=== PATIENT | male | born 1945 | race African-American/Black ===

== ENCOUNTER 2018-06-09 12:11 | Emergency (ER) | payer BC ==
[2018-06-09] MEDS: SOD CHLORIDE 0.9% 1,000 ML IV (13:16)
[2018-06-09] MEDS: ONDANSETRON 4 MG INJ IV (13:18)
[2018-06-09] MEDS: morphine 4 MG/ML VIAL IV (13:18)
[2018-06-09 13:23] LABS: ADD MAN DIFF? NO
[2018-06-09 13:27] LABS: WHITE BLOOD COUNT 6.3 10^3/ul (4.8-10.8)
[2018-06-09 13:27] LABS: BASOPHILS % 0.3 % (0.0-2.0); HEMATOCRIT 29.7 % (42.0-52.0); HEMOGLOBIN 9.2 g/dl (14.0-18.0); LYMPHOCYTES # 0.9 10^3/ul (0.8-2.9); LYMPHOCYTES % 14.2 % (15.0-51.0); MEAN CORPUSCULAR HEMOGLOBIN 28.6 pg (29.0-33.0); MEAN CORPUSCULAR VOLUME 92.2 fl (82.0-101.0); MEAN PLATELET VOLUME 9.5 fl (7.4-10.4); MONOCYTE # 0.5 10^3/ul (0.3-0.9); MONOCYTES % 8.2 % (0.0-11.0); NEUTROPHIL # 4.8 10^3/ul (1.6-7.5); NEUTROPHILS % 75.6 % (39.0-77.0); PLATELET COUNT 400 10^3/UL (140-415); RED BLOOD COUNT 3.22 10^6/ul (4.70-6.10); RED CELL DISTRIBUTION WIDTH 13.1 % (11.5-14.5)
[2018-06-09 13:44] LABS: ALANINE AMINOTRANSFERASE 16 IU/L (13-69); ALBUMIN/GLOBULIN RATIO 1.14; ALKALINE PHOSPHATASE 477 IU/L (42-121); ANION GAP 12 (5-13); ASPARTATE AMINO TRANSFERASE 33 IU/L (15-46); BILIRUBIN,INDIRECT 0.4 mg/dl (0-1.1); BILIRUBIN,TOTAL 0.4 mg/dl (0.2-1.3); BLOOD UREA NITROGEN 42 mg/dl (7-20); CARBON DIOXIDE 29 mmol/L (21-31); CHLORIDE 96 mmol/L (97-110); CREATININE 1.75 mg/dl (0.61-1.24); GLUCOSE 112 mg/dl (70-220); LIPASE 46 U/L (23-300); POTASSIUM 4.2 mmol/L (3.5-5.1); SODIUM 137 mmol/L (135-144); TOTAL PROTEIN 7.5 g/dl (6.1-8.1)
== END 2018-06-09 15:58 | disposition home or self-care (01) ==
LOC: E/R 12:11
DX: E86.0 Dehydration (principal); R53.1 Weakness; E11.9 Type 2 diabetes mellitus without complications; I10 Essential (primary) hypertension; Z87.891 Personal history of nicotine dependence; Z85.46 Personal history of malignant neoplasm of prostate
CPT/HCPCS: 36415; 74176; 80053; 83690; 85025; 93005; 96374; 96375; 99285-25

== ENCOUNTER 2018-06-12 20:06 | Inpatient (IN) | payer BC, MEDICAID ==
[2018-06-12] MEDS: SOD CHLORIDE 0.9% 500 ML IV (20:48)
[2018-06-12 20:59] LABS: ADD MAN DIFF? NO
[2018-06-12 21:00] LABS: BASOPHILS % 0.2 % (0.0-2.0); EOSINOPHILS % 0.1 % (0.0-7.0); HEMATOCRIT 29.4 % (42.0-52.0); HEMOGLOBIN 9.3 g/dl (14.0-18.0); LYMPHOCYTES # 1.2 10^3/ul (0.8-2.9); LYMPHOCYTES % 14.7 % (15.0-51.0); MEAN CORPUSCULAR HEMOGLOBIN 28.8 pg (29.0-33.0); MEAN CORPUSCULAR HGB CONC 31.6 g/dl (32.0-37.0); MEAN PLATELET VOLUME 10.5 fl (7.4-10.4); MONOCYTE # 0.6 10^3/ul (0.3-0.9); MONOCYTES % 7.7 % (0.0-11.0); NEUTROPHIL # 6.3 10^3/ul (1.6-7.5); NEUTROPHILS % 76.2 % (39.0-77.0); PLATELET COUNT 498 10^3/UL (140-415); RED BLOOD COUNT 3.23 10^6/ul (4.70-6.10); RED CELL DISTRIBUTION WIDTH 13.2 % (11.5-14.5)
[2018-06-12 21:00] LABS: WHITE BLOOD COUNT 8.3 10^3/ul (4.8-10.8)
[2018-06-12] MEDS: ONDANSETRON 4 MG INJ IV (21:06)
[2018-06-12] MEDS: HYDROmorphONE 1 MG/ML SYG IV (21:06)
[2018-06-12] MEDS: SOD CHLORIDE 0.9% 1,000 ML IV (21:06)
[2018-06-12 21:17] LABS: ALANINE AMINOTRANSFERASE 13 IU/L (13-69); ALBUMIN/GLOBULIN RATIO 1.05; ALKALINE PHOSPHATASE 652 IU/L (42-121); ANION GAP 13 (5-13); ASPARTATE AMINO TRANSFERASE 43 IU/L (15-46); BILIRUBIN,INDIRECT 0.4 mg/dl (0-1.1); BILIRUBIN,TOTAL 0.4 mg/dl (0.2-1.3); BLOOD UREA NITROGEN 45 mg/dl (7-20); CALCIUM 10.1 mg/dl (8.4-10.2); CARBON DIOXIDE 30 mmol/L (21-31); CHLORIDE 99 mmol/L (97-110); CREATININE 1.53 mg/dl (0.61-1.24); GLUCOSE 143 mg/dl (70-220); SODIUM 142 mmol/L (135-144); TOTAL PROTEIN 7.8 g/dl (6.1-8.1)
[2018-06-12 21:20] LABS: ADD UMIC NO; UR ASCORBIC ACID NEGATIVE (NEGATIVE); UR BACTERIA FEW /HPF (NONE SEEN); UR BILIRUBIN (Dip) NEGATIVE (NEGATIVE); UR BLOOD (Dip) NEGATIVE (NEGATIVE); UR CLARITY SLIGHTLY CLOUDY (CLEAR); UR COLOR YELLOW (YELLOW); UR GLUCOSE (Dip) NEGATIVE (NEGATIVE); UR KETONES (Dip) TRACE mg/dL (NEGATIVE); UR LEUKOCYTE ESTERASE (Dip) NEGATIVE Leu/ul (NEGATIVE); UR MUCUS FEW /HPF (NONE SEEN); UR NITRITE (Dip) NEGATIVE (NEGATIVE); UR RBC 2 /HPF (0-5); UR SPECIFIC GRAVITY (Dip) 1.019 (1.003-1.030); UR TOTAL PROTEIN (Dip) NEGATIVE (NEGATIVE); UR UROBILINOGEN (Dip) 1+ mg/dL (NEGATIVE); UR WBC 3 /HPF (0-5)
[2018-06-13] MEDS ORDERED: ACETAMINOPHEN 325 MG TAB PO (00:30)
[2018-06-13] MEDS ORDERED: HYDROCODONE/APAP (5/325) TAB PO (00:30)
[2018-06-13] MEDS ORDERED: ALBUTEROL/IPRATROPIUM (NEB) 3 ML AMP HHN (00:30)
[2018-06-13] MEDS ORDERED: NACL 0.9% 3 ML SYG IV (00:30)
[2018-06-13] MEDS ORDERED: ONDANSETRON 4 MG INJ IV (00:30)
[2018-06-13] MEDS ORDERED: GLUCAGON 1 MG INJ IM (01:00)
[2018-06-13] MEDS ORDERED: GLUCOSE GEL 15 GRAM TUBE PO ×2 (01:00)
[2018-06-13] MEDS ORDERED: DEXTROSE 50% 50 ML SYRINGE IV ×2 (01:00)
[2018-06-13] MEDS ORDERED: GLUCOSE GEL 15 GRAM TUBE BUCCAL (01:00)
[2018-06-13] MEDS: ACCU-CHEK XX (02:00)
[2018-06-13 05:47] LABS: ADD MAN DIFF? NO
[2018-06-13 05:50] LABS: WHITE BLOOD COUNT 6.6 10^3/ul (4.8-10.8)
[2018-06-13 05:50] LABS: BASOPHILS % 0.2 % (0.0-2.0); EOSINOPHILS % 0.3 % (0.0-7.0); HEMATOCRIT 28.4 % (42.0-52.0); HEMOGLOBIN 8.5 g/dl (14.0-18.0); LYMPHOCYTES # 0.9 10^3/ul (0.8-2.9); LYMPHOCYTES % 13.7 % (15.0-51.0); MEAN CORPUSCULAR HEMOGLOBIN 28.5 pg (29.0-33.0); MEAN CORPUSCULAR HGB CONC 29.9 g/dl (32.0-37.0); MEAN CORPUSCULAR VOLUME 95.3 fl (82.0-101.0); MEAN PLATELET VOLUME 10.1 fl (7.4-10.4); MONOCYTE # 0.6 10^3/ul (0.3-0.9); MONOCYTES % 9.2 % (0.0-11.0); NEUTROPHILS % 75.4 % (39.0-77.0); PLATELET COUNT 403 10^3/UL (140-415); RED BLOOD COUNT 2.98 10^6/ul (4.70-6.10); RED CELL DISTRIBUTION WIDTH 13.5 % (11.5-14.5)
[2018-06-13 06:15] LABS: ALANINE AMINOTRANSFERASE 11 IU/L (13-69); ALBUMIN 3.6 g/dl (3.3-4.9); ALBUMIN/GLOBULIN RATIO 1.09; ALKALINE PHOSPHATASE 546 IU/L (42-121); ANION GAP 9 (5-13); ASPARTATE AMINO TRANSFERASE 36 IU/L (15-46); BILIRUBIN,INDIRECT 0.3 mg/dl (0-1.1); BILIRUBIN,TOTAL 0.3 mg/dl (0.2-1.3); BLOOD UREA NITROGEN 38 mg/dl (7-20); CALCIUM 9.5 mg/dl (8.4-10.2); CARBON DIOXIDE 28 mmol/L (21-31); CHLORIDE 106 mmol/L (97-110); CHOLESTEROL 232 mg/dl (100-200); GLUCOSE 127 mg/dl (70-220); HDL CHOLESTEROL 29 mg/dl (31-75); LDL CHOLESTEROL,CALCULATED 174 mg/dl; MAGNESIUM 2.2 mg/dl (1.7-2.5); PHOSPHORUS 3.7 mg/dl (2.5-4.9); SODIUM 143 mmol/L (135-144); TOTAL PROTEIN 6.9 g/dl (6.1-8.1); TRIGLYCERIDES 146 mg/dl (0-149)
[2018-06-13 07:15] LABS: HEMOGLOBIN A1C 5.7 % (0-5.9)
[2018-06-13] MEDS: INSULIN ASPART [NOVOLOG] 3 ML PEN SC ×4 (08:00→20:35)
[2018-06-13] MEDS: FAMOTIDINE 20 MG INJ IV ×2 (08:26→20:38)
[2018-06-13] MEDS: HEPARIN 5,000 UNIT/1 ML VIAL SC ×2 (08:30→20:37)
[2018-06-13] MEDS: BICALUTAMIDE 50 MG TAB PO (09:43)
[2018-06-13] MEDS: HYDROCODONE/APAP (5/325) TAB PO (11:33)
[2018-06-13] MEDS ORDERED: ATORVASTATIN 40 MG TAB PO (21:00)
[2018-06-14 07:27] LABS: ADD MAN DIFF? NO
[2018-06-14 07:32] LABS: BASOPHILS % 0.1 % (0.0-2.0); EOSINOPHILS % 0.3 % (0.0-7.0); HEMATOCRIT 28.7 % (42.0-52.0); HEMOGLOBIN 8.6 g/dl (14.0-18.0); MEAN CORPUSCULAR HEMOGLOBIN 27.9 pg (29.0-33.0); MEAN CORPUSCULAR VOLUME 93.2 fl (82.0-101.0); MEAN PLATELET VOLUME 10.3 fl (7.4-10.4); MONOCYTE # 0.6 10^3/ul (0.3-0.9); MONOCYTES % 8.4 % (0.0-11.0); NEUTROPHIL # 5.6 10^3/ul (1.6-7.5); NEUTROPHILS % 75.7 % (39.0-77.0); PLATELET COUNT 444 10^3/UL (140-415); RED BLOOD COUNT 3.08 10^6/ul (4.70-6.10); RED CELL DISTRIBUTION WIDTH 13.5 % (11.5-14.5)
[2018-06-14 07:32] LABS: WHITE BLOOD COUNT 7.4 10^3/ul (4.8-10.8)
[2018-06-14 07:50] LABS: ANION GAP 7 (5-13); BLOOD UREA NITROGEN 26 mg/dl (7-20); CALCIUM 9.6 mg/dl (8.4-10.2); CARBON DIOXIDE 33 mmol/L (21-31); CHLORIDE 104 mmol/L (97-110); CREATININE 1.05 mg/dl (0.61-1.24); GLUCOSE 129 mg/dl (70-220); MAGNESIUM 1.9 mg/dl (1.7-2.5); PHOSPHORUS 3.4 mg/dl (2.5-4.9); POTASSIUM 4.2 mmol/L (3.5-5.1); SODIUM 144 mmol/L (135-144)
[2018-06-14] MEDS: INSULIN ASPART [NOVOLOG] 3 ML PEN SC ×4 (08:00→21:00)
[2018-06-14] MEDS: HEPARIN 5,000 UNIT/1 ML VIAL SC ×2 (08:35→21:16)
[2018-06-14] MEDS: FAMOTIDINE 20 MG INJ IV (08:35)
[2018-06-14] MEDS: BICALUTAMIDE 50 MG TAB PO (08:37)
[2018-06-14] MEDS: oxyCODONE (CR) 10 MG TAB [oxyCONTIN] PO ×2 (09:29→21:15)
[2018-06-14] MEDS: LORAZEPAM 2 MG INJ IV (09:29)
[2018-06-14] MEDS: SOD CHLORIDE 0.9% 100 ML (12:06)
[2018-06-14] MEDS: IODIXANOL LOCM 100 ML BTL (12:07)
[2018-06-14] MEDS: FAMOTIDINE 20 MG TAB PO (21:15)
[2018-06-15 06:40] LABS: ADD MAN DIFF? NO
[2018-06-15 07:24] LABS: ANION GAP 10 (5-13); BLOOD UREA NITROGEN 23 mg/dl (7-20); CARBON DIOXIDE 26 mmol/L (21-31); CHLORIDE 108 mmol/L (97-110); CREATININE 0.95 mg/dl (0.61-1.24); GLUCOSE 102 mg/dl (70-220); POTASSIUM 4.3 mmol/L (3.5-5.1); SODIUM 144 mmol/L (135-144)
[2018-06-15] MEDS: INSULIN ASPART [NOVOLOG] 3 ML PEN SC ×4 (08:00→20:38)
[2018-06-15 08:06] LABS: WHITE BLOOD COUNT 7.6 10^3/ul (4.8-10.8)
[2018-06-15 08:06] LABS: BASOPHILS % 0.3 % (0.0-2.0); EOSINOPHILS % 0.1 % (0.0-7.0); HEMATOCRIT 27.3 % (42.0-52.0); HEMOGLOBIN 8.4 g/dl (14.0-18.0); LYMPHOCYTES % 13.1 % (15.0-51.0); MEAN CORPUSCULAR HEMOGLOBIN 28.5 pg (29.0-33.0); MEAN CORPUSCULAR HGB CONC 30.8 g/dl (32.0-37.0); MEAN CORPUSCULAR VOLUME 92.5 fl (82.0-101.0); MEAN PLATELET VOLUME 10.4 fl (7.4-10.4); MONOCYTE # 0.7 10^3/ul (0.3-0.9); NEUTROPHIL # 5.8 10^3/ul (1.6-7.5); NEUTROPHILS % 76.6 % (39.0-77.0); PLATELET COUNT 439 10^3/UL (140-415); RED BLOOD COUNT 2.95 10^6/ul (4.70-6.10); RED CELL DISTRIBUTION WIDTH 13.7 % (11.5-14.5)
[2018-06-15] MEDS: FAMOTIDINE 20 MG TAB PO ×2 (08:55→20:38)
[2018-06-15] MEDS: oxyCODONE (CR) 10 MG TAB [oxyCONTIN] PO (08:55)
[2018-06-15] MEDS: HEPARIN 5,000 UNIT/1 ML VIAL SC ×2 (08:58→20:39)
[2018-06-15] MEDS: BICALUTAMIDE 50 MG TAB PO (08:58)
[2018-06-15] MEDS: HYDROCODONE/APAP (5/325) TAB PO (09:21)
[2018-06-15 23:18] LABS: PSA, FREE >17.0 ng/mL
[2018-06-16 03:24] LABS: AMPHETAMINE/METHAMPHETAMINE Negative (NEGATIVE); BARBITURATES Negative (NEGATIVE); BENZODIAZEPINES Negative (NEGATIVE); CANNABINOIDS Positive (NEGATIVE); COCAINE Negative (NEGATIVE)
[2018-06-16 03:28] LABS: OPIATES Positive (NEGATIVE)
[2018-06-16] MEDS: INSULIN ASPART [NOVOLOG] 3 ML PEN SC ×4 (08:00→20:30)
[2018-06-16 08:08] LABS: AMMONIA < 9 umol/l (9-30)
[2018-06-16] MEDS: FAMOTIDINE 20 MG TAB PO ×2 (08:52→20:31)
[2018-06-16] MEDS: BICALUTAMIDE 50 MG TAB PO (08:53)
[2018-06-16] MEDS: HEPARIN 5,000 UNIT/1 ML VIAL SC ×2 (08:53→20:32)
[2018-06-16] MEDS: POLYETHYLENE GLYCOL 17 GM PACKET PO (12:28)
[2018-06-16] MEDS: LORAZEPAM 2 MG INJ IV ×3 (15:42→23:51)
[2018-06-17] MEDS: SOD CHLORIDE 0.9% 500 ML IV (03:10)
[2018-06-17] MEDS: INSULIN ASPART [NOVOLOG] 3 ML PEN SC ×3 (08:00→18:00)
[2018-06-17] MEDS: LORAZEPAM 2 MG INJ IV (08:02)
[2018-06-17] MEDS: HEPARIN 5,000 UNIT/1 ML VIAL SC (08:09)
[2018-06-17] MEDS: BICALUTAMIDE 50 MG TAB PO (08:09)
[2018-06-17] MEDS: FAMOTIDINE 20 MG TAB PO (08:18)
[2018-06-17 08:56] LABS: PLATELET COUNT 499 10^3/UL (140-415)
[2018-06-17 09:15] LABS: INR 1.11; PROTIME 14.4 Sec (11.9-14.9); PT RATIO 1.1
[2018-06-17 09:16] LABS: PARTIAL THROMBOPLASTIN TIME 38.3 Sec (23.0-35.0)
[2018-06-17 09:30] LABS: THROMBIN TIME 14.4 SEC (13.8-19.1)
[2018-06-17] MEDS ORDERED: LIDOCAINE 1% (MPF) 5 ML VIAL (10:33)
[2018-06-24 22:34] LABS: CRYPTOCOCCAL ANTIGEN - SOURCE SERUM
== END 2018-06-17 19:50 | DRG 92 ==
LOC: E/R 20:06 → 5EC 23:12
PROC: 009U3ZX Drainage of Spinal Canal, Percutaneous Approach, Diagnostic (ICD-10-PCS; principal; 2018-06-17)
PROC: B01B1ZZ Fluoroscopy of Spinal Cord using Low Osmolar Contrast (ICD-10-PCS; 2018-06-17)
DX: G92 Toxic encephalopathy (principal); C79.51 Secondary malignant neoplasm of bone; N17.9 Acute kidney failure, unspecified; Z68.1 Body mass index [BMI] 19.9 or less, adult; C61 Malignant neoplasm of prostate; E86.0 Dehydration; I95.9 Hypotension, unspecified; E11.9 Type 2 diabetes mellitus without complications; I10 Essential (primary) hypertension; E78.5 Hyperlipidemia, unspecified; R62.7 Adult failure to thrive; Z72.0 Tobacco use; D64.9 Anemia, unspecified; R51 Headache; G93.89 Other specified disorders of brain
CPT/HCPCS: 36415; 70460; 70551; 71045; 74176; 80048; 80053; 80061; 80307; 81001; 81003; 82140; 82607; 82945; 82962; 83036; 83735; 84100; 84153; 84154; 84157; 84443; 85025; 85049; 85610; 85670; 85730; 86641; 89051; 93005; 96361; 96374; 96375; 97110; 97116; 97161; 97530; 99285-25